=== PATIENT | female | born 1995 | race Caucasian/White ===

== ENCOUNTER 2016-08-22 14:16 | Emergency (ER) | payer BC ==
[~2016-08-22] VITALS: Ht 172.7 cm; Wt 58.1 kg
[~2016-08-22 14:16] MED LIST: AMOXICILLIN 50500 M1 PO; BIRTH CONTROL; IBUPROFEN 600600 M1 PO
[2016-08-22 14:35] LABS: URINE BILIRUBIN NEGATIVE (Negative); URINE BLOOD NEGATIVE (Negative); URINE COLOR YELLOW; URINE GLUCOSE-RANDOM* NEGATIVE (Negative); URINE KETONES NEGATIVE (Negative); URINE NITRITE NEGATIVE (Negative); URINE PROTEIN (DIPSTICK) NEGATIVE (Negative); URINE UROBILINOGEN 0.2 E.U./dl (0.2-1.0)
[2016-08-22 14:47] LABS: ABSOLUTE NEUTROPHILS 3.9 thou/uL (1.4-8.2); BASOPHILS 0.5 % (0.0-2.0); EOSINOPHILS 1.2 % (0.0-3.0); HEMATOCRIT 41.9 % (37.0-47.0); HEMOGLOBIN 14.5 gm/dL (12.0-15.0); LYMPHOCYTES 25.8 % (24.0-44.0); MCHC 34.7 g/dL (28.0-37.0); MCV 80.7 fL (80.0-100.0); MONOCYTES 9.7 % (1.0-8.0); PLATELET COUNT 183 thou/uL (150-400); POLYS 62.8 % (36.0-66.0); RDW 12.7 % (10.5-14.5); WBC 6.3 thou/uL (4.0-11.0)
[2016-08-22 14:48] LABS: MANUAL DIFF NO
[2016-08-22 15:00] LABS: CALCIUM 8.8 mg/dL (8.5-10.1); CREATININE 0.8 mg/dL (0.6-1.0); POTASSIUM 3.7 mmol/L (3.5-5.1)
[2016-08-22 15:05] LABS: ALBUMIN 4.2 g/dL (3.4-5.0); TOTAL BILIRUBIN 0.4 mg/dL (<0.1-1.0); TOTAL PROTEIN 7.9 g/dL (6.4-8.2)
[2016-08-22] MEDS ORDERED: NAPROSYN500 MG PO (17:08)
[2016-08-22] MEDS ORDERED: MIRALAX17 GM PO (17:08)
[2016-08-22 17:25] VITALS: BP 107/62
== END 2016-08-22 17:26 | disposition home or self-care (01) ==
LOC: ER 14:16
PROVIDERS: Nurse Practitioner Family
DX: K59.00 Constipation, unspecified (principal); N83.201 Unspecified ovarian cyst, right side

== ENCOUNTER 2016-11-05 04:11 | Emergency (ER) | payer BC ==
[~2016-11-05] VITALS: Ht 172.7 cm; Wt 56.7 kg
[~2016-11-05 04:11] MED LIST changes: +MIRALAX17 GM PO; +NAPROSYN500 MG PO
[2016-11-05] MEDS ORDERED: BCP PO (04:27)
[2016-11-05 04:39] LABS: ABSOLUTE NEUTROPHILS 3.4 thou/uL (1.4-8.2); BASOPHILS 0.7 % (0.0-2.0); EOSINOPHILS 1.2 % (0.0-3.0); HEMATOCRIT 37.2 % (37.0-47.0); HEMOGLOBIN 12.9 gm/dL (12.0-15.0); LYMPHOCYTES 32.2 % (24.0-44.0); MCH 28.8 pg (26.0-34.0); MCHC 34.8 g/dL (28.0-37.0); MCV 82.8 fL (80.0-100.0); MONOCYTES 9.1 % (1.0-8.0); PLATELET COUNT 178 thou/uL (150-400); POLYS 56.8 % (36.0-66.0); RBC 4.49 mil/uL (4.20-5.00); RDW 12.9 % (10.5-14.5)
[2016-11-05 04:40] LABS: MANUAL DIFF NO
[2016-11-05 04:56] LABS: CALCIUM 8.5 mg/dL (8.5-10.1); CREATININE 0.8 mg/dL (0.6-1.0); POTASSIUM 3.2 mmol/L (3.5-5.1)
[2016-11-05 05:52] VITALS: BP 118/71
== END 2016-11-05 05:53 | disposition home or self-care (01) ==
LOC: ER 04:11
PROVIDERS: Emergency Medicine
DX: R42 Dizziness and giddiness (principal); K92.2 Gastrointestinal hemorrhage, unspecified

== ENCOUNTER 2017-01-24 23:48 | Emergency (ER) | payer BC ==
[~2017-01-24] VITALS: Ht 172.7 cm; Wt 59.9 kg
[~2017-01-24 23:48] MED LIST changes: +BCP PO
[2017-01-25] MEDS ORDERED: PRENATAL MULTI1 EAC3 PO (00:07)
[2017-01-25 01:42] VITALS: BP 111/72
== END 2017-01-25 01:44 | disposition home or self-care (01) ==
LOC: ER 23:48
DX: O20.0 Threatened abortion (principal); Z3A.11 11 weeks gestation of pregnancy; Z98.890 Other specified postprocedural states